=== PATIENT | female | born 1945 | race Caucasian/White ===

== ENCOUNTER 2017-02-12 08:42 | Inpatient (IN) | payer MEDICARE, OTHER ==
[~2017-02-12] VITALS: Ht 157.5 cm; Wt 104.8 kg
[2017-02-12] MEDS ORDERED: VERA240C2 PO (09:19)
[2017-02-12] MEDS ORDERED: CHOL500045 PO (09:19)
[2017-02-12] MEDS ORDERED: HYDR25TA6 PO (09:19)
[2017-02-12] MEDS ORDERED: IMIP25TA3 PO (09:19)
[2017-02-12] MEDS ORDERED: LEVO88TA4 PO (09:19)
[2017-02-12] MEDS ORDERED: MELO7.5T31 PO (09:19)
[2017-02-12 09:31] LABS: ALBUMIN 3.4 g/dL (3.4-5.0); CALCIUM 9.1 mg/dL (8.5-10.1); CHLORIDE 97 mmol/L (98-107)
[2017-02-12 09:32] LABS: ANION GAP 11 mmol/L (5-15); CREATININE 0.89 mg/dL (0.55-1.02)
[2017-02-12 09:40] LABS: MEAN CORPUSCULAR HEMOGLOBIN 31.9 pg (27.0-34.8); MEAN CORPUSCULAR HGB CONC 33.8 g/dL (32.4-35.8); MEAN CORPUSCULAR VOLUME 94.4 fL (80-100); RED CELL DISTRIBUTION WIDTH 13.2 % (9.6-15.2)
[2017-02-12 09:47] LABS: MD YES
[2017-02-12 09:49] LABS: <RBC MORPHOLOGY> NORMAL; BAND#(MANUAL) 0.06 x10^3/uL; BANDS%(MANUAL) 1 % (0-7); LYMPH#(MANUAL) 2.02 x10^3/uL (1-3.4); LYMPHS% (MANUAL) 32 % (22-44); MONOS#(MANUAL) 0.38 x10^3/uL (0.3-2.7); MONOS% (MANUAL) 6 % (2-9); REACTIVE LYMPHS # (MANUAL) 0.06 x10^3/uL (0-0); REACTIVE LYMPHS % (MANUAL) 1 % (0-0); SEG#(MANUAL) 3.78 x10^3/uL (1.8-6.8); SEGS% (MANUAL) 60 % (42-75)
[2017-02-12] MEDS ORDERED: POTASSIUM CHLORIDE 20 MEQ TAB.ER.PRT ONE (09:50)
[2017-02-12 09:54] LABS: MEAN PLATELET VOLUME 9.1 fL (7.4-10.4); PLATELET COUNT 124 x10^3/uL (130-400)
[2017-02-12 09:55] LABS: <PLATELET ESTIMATE> ADEQUATE; GIANT PLATELETS 1+
[2017-02-12] MEDS ORDERED: POTASSIUM CHLORIDE 20 MEQ TAB.ER.PRT PO ONE (10:00)
[2017-02-12] MEDS ORDERED: MAGNESIUM SULFATE PMX 4GM/100M 100 ML IV ONE (10:00)
[2017-02-12] MEDS ORDERED: POTASSIUM CHLORIDE 40 MEQ in SODIUM CHLORIDE 0.9% 500 ML IV ONE (10:00)
[2017-02-12] MEDS ORDERED: NS + 40MEQ KCL 1,000 ML IV ONE (10:23)
[2017-02-12] MEDS ORDERED: HYDROcodone/APAP 5/325 TABLET PO PRN (11:00)
[2017-02-12] MEDS ORDERED: MELOXICAM 15 MG TABLET PO PRN (11:00)
[2017-02-12] MEDS ORDERED: ACETAMINOPHEN 325 MG TABLET PO PRN (11:00)
[2017-02-12] MEDS ORDERED: POLYETHYLENE GLYCOL 17 GM PACKET PO PRN (11:00)
[2017-02-12] MEDS ORDERED: ONDANSETRON 2MG/ML, 2ML IVPush PRN (11:00)
[2017-02-12] MEDS ORDERED: DOCUSATE 100 MG CAPSULE PO PRN (11:00)
[2017-02-12] MEDS ORDERED: morphine SULFATE 10 MG/ML, 1ML IVPush PRN (11:00)
[2017-02-12 11:36] LABS: FREE T4 (FREE THYROXINE) 1.57 ng/dL (0.76-1.46); THYROID STIMULATING HORMONE 0.582 mIU/L (0.358-3.740)
[2017-02-12 12:00] VITALS: BP 111/74
[2017-02-12] MEDS: ENOXAPARIN 40 MG/0.4 ML SQ SCH ×2 (12:00→12:22)
[2017-02-12] MEDS ORDERED: NS + 20MEQ KCL 1,000 ML IV SCH (12:00)
[2017-02-12] MEDS: LEVOTHYROXINE 88 MCG TABLET PO SCH (12:22)
[2017-02-12] MEDS: VERAPAMIL ER 240MG TABLET.ER PO SCH (12:22)
[2017-02-12 14:24] LABS: MICROSCOPIC INDICATED
[2017-02-12 14:33] LABS: CULTURE INDICATED? YES
[2017-02-12 14:47] LABS: CLOSTRIDIUM DIFFICILE ANTIGEN NEGATIVE; CLOSTRIDIUM DIFFICILE TOXIN NEGATIVE (Negative)
[2017-02-12 16:20] VITALS: BP 123/75
[2017-02-12 19:12] VITALS: BP 128/70
[2017-02-12] MEDS: IMIPRAMINE 25 MG TABLET PO SCH (20:58)
[2017-02-13 01:40] VITALS: BP 102/65
[2017-02-13 04:58] LABS: BASOPHILS # (AUTO) 0.01 x10^3/uL (0-0.1); BASOPHILS % (AUTO) 0 % (0-1); EOSINOPHILS # (AUTO) 0.02 x10^3/uL (0-0.4); EOSINOPHILS % (AUTO) 1 % (1-7); LYMPHOCYTES # (AUTO) 1.94 x10^3/uL (1-3.4); LYMPHOCYTES % (AUTO) 44 % (22-44); MD NO; MEAN CORPUSCULAR HEMOGLOBIN 31.8 pg (27.0-34.8); MEAN CORPUSCULAR HGB CONC 33.5 g/dL (32.4-35.8); MEAN CORPUSCULAR VOLUME 94.7 fL (80-100); MEAN PLATELET VOLUME 9.1 fL (7.4-10.4); MONOCYTES # (AUTO) 0.45 x10^3/uL (0.2-0.8); MONOCYTES % (AUTO) 10 % (2-9); NEUTROPHILS % (AUTO) 45 % (42-75); PLATELET COUNT 138 x10^3/uL (130-400); RED BLOOD COUNT 4.49 x10^6/uL (3.82-5.3); RED CELL DISTRIBUTION WIDTH 13.6 % (9.6-15.2)
[2017-02-13 05:11] LABS: CALCIUM 8.4 mg/dL (8.5-10.1); CHLORIDE 108 mmol/L (98-107)
[2017-02-13 05:15] LABS: ANION GAP 6 mmol/L (5-15); CREATININE 0.67 mg/dL (0.55-1.02)
[2017-02-13 07:01] VITALS: BP 108/68
[2017-02-13] MEDS: SENNA/DOCUSATE TABLET PO SCH (08:02)
[2017-02-13] MEDS: LEVOTHYROXINE 88 MCG TABLET PO SCH (08:10)
[2017-02-13] MEDS: VERAPAMIL ER 240MG TABLET.ER PO SCH (09:00)
[2017-02-13] MEDS ORDERED: CEFTRIAXONE PMX 1GM/50ML 50 ML IV SCH (11:00)
[2017-02-13] MEDS: ENOXAPARIN 40 MG/0.4 ML SQ SCH (12:00)
[2017-02-13 14:41] VITALS: BP 114/70
[2017-02-13] MEDS: POTASSIUM CHLORIDE 20 MEQ TAB.ER.PRT PO SCH (17:24)
[2017-02-13] MEDS: IMIPRAMINE 25 MG TABLET PO SCH (22:29)
[2017-02-13 22:31] VITALS: BP 129/83
[2017-02-14 02:45] VITALS: BP 142/89
[2017-02-14 05:47] LABS: ANION GAP 6 mmol/L (5-15); CALCIUM 8.9 mg/dL (8.5-10.1); CHLORIDE 111 mmol/L (98-107)
[2017-02-14 05:48] LABS: CREATININE 0.64 mg/dL (0.55-1.02)
[2017-02-14] MEDS: LEVOTHYROXINE 88 MCG TABLET PO SCH (06:06)
[2017-02-14 06:57] VITALS: BP 106/68
[2017-02-14] MEDS: SENNA/DOCUSATE TABLET PO SCH (09:00)
[2017-02-14] MEDS: POTASSIUM CHLORIDE 20 MEQ TAB.ER.PRT PO SCH (10:22)
[2017-02-14] MEDS: VERAPAMIL ER 240MG TABLET.ER PO SCH (10:22)
[2017-02-14] MEDS ORDERED: CEFTRIAXONE 1,000 MG in DEXTROSE 5% 50 ML IVPB SCH (11:00)
[2017-02-14] MEDS: ENOXAPARIN 40 MG/0.4 ML SQ SCH (12:00)
== END 2017-02-14 13:00 | disposition home or self-care (01) | DRG 74 ==
LOC: ED 09:57 → EDIP 09:58 → ED 09:59 → 5SO 11:41
PROVIDERS: ADMIT Family Medicine; ATTEND Family Medicine
DX: G90.9 Disorder of the autonomic nervous system, unspecified (principal); D69.6 Thrombocytopenia, unspecified; S06.0X9A Concussion with loss of consciousness of unspecified duration, initial encounter; E66.01 Morbid (severe) obesity due to excess calories; E83.42 Hypomagnesemia; F03.90 Unspecified dementia, unspecified severity, without behavioral disturbance, psychotic disturbance, mood disturbance, and anxiety; N39.0 Urinary tract infection, site not specified; Z68.41 Body mass index [BMI] 40.0-44.9, adult; E87.6 Hypokalemia; E86.0 Dehydration; W19.XXXA Unspecified fall, initial encounter; R82.71 Bacteriuria; E03.9 Hypothyroidism, unspecified; I10 Essential (primary) hypertension; M54.2 Cervicalgia; Y93.89 Activity, other specified; Z84.1 Family history of disorders of kidney and ureter; Y92.009 Unspecified place in unspecified non-institutional (private) residence as the place of occurrence of the external cause; Z84.89 Family history of other specified conditions; Z79.899 Other long term (current) drug therapy; T50.2X5A Adverse effect of carbonic-anhydrase inhibitors, benzothiadiazides and other diuretics, initial encounter
CPT/HCPCS: 36415; 70450; 71010; 72125; 80048; 81001; 82040; 83735; 84439; 84443; 85025; 87086; 87324; 93005; 93306; 99285; J0696; J1650; J3480; J3475; J7040